=== PATIENT | male | born 1960 | race African-American/Black ===

== ENCOUNTER 2017-02-26 19:16 | Inpatient (IN) | payer MEDICARE, MEDICAID ==
[~2017-02-26] VITALS: Ht 200.7 cm; Wt 93.9 kg
[~2017-02-26 19:16] MED LIST: ASPI-991 PO; Nitroglycerin SL; SIMV20TA2 PO
--- NOTE | 2017-02-26 19:28 | NUR ---
DARCIRA 37 FROM [facility]. PT C/O NON RADIATING SHARP CHEST PAIN, ON AND OFF X 2 DAYS. PER EMS ADMIN 162 ASA PO. PT AOX3 RR EVEN AND UNLABORED. NO SOB NOTED. NAD NOTED. NO NVD AT THIS TIME. PT NOT DIAPHORETIC. PT GOWNED AND PLACED ON MONITOR WAITING FOR MD HINES.
--- NOTE | 2017-02-26 19:43 | NUR ---
LAB AT BEDSIDE FOR BLOOD DRAW.
--- NOTE | 2017-02-26 19:56 | NUR ---
XRAY AT BEDSIDE.
[2017-02-26 19:58] LABS: BASOPHILS % (AUTO) 0.3 % (0.0-2.0); EOSINOPHILS # (AUTO) 0.1 /CMM (0.0-0.7); EOSINOPHILS % (AUTO) 2.5 % (0.0-6.0); HEMATOCRIT 43 % (39-51); HEMOGLOBIN 14.1 g/dL (13.5-17.5); LYMPHOCYTES # (AUTO) 2.2 /CMM (0.8-4.8); MEAN CORPUSCULAR HEMOGLOBIN 28 PG (26.0-33.0); MEAN CORPUSCULAR HGB CONC 33 g/dl (31.0-36.0); MEAN CORPUSCULAR VOLUME 86 fL (80-96); MONOCYTES # (AUTO) 0.2 /CMM (0.1-1.30); MONOCYTES % (AUTO) 4.9 % (2.0-12.0); NEUTROPHILS # (AUTO) 1.9 /CMM (1.8-8.9); NEUTROPHILS % (AUTO) 43.3 % (43.0-81.0); PLATELET COUNT (AUTO) 165 /CMM (150-450); RDW COEFFICIENT OF VARIATION 13.4 (11.5-15.0); RED BLOOD CELL COUNT(AUTO) 4.96 MIL/uL (4.5-6.0); WHITE BLOOD COUNT (AUTO) 4.4 K/uL (4.3-11.0)
[2017-02-26 20:06] LABS: CARBON DIOXIDE 29 mmol/L (21-32); CHLORIDE 104 mmol/L (98-107); CREATININE 0.9 mg/dL (0.6-1.3); GLUCOSE 100 mg/dL (74-106); SODIUM SERUM 138 mmol/L (136-145); UREA NITROGEN, BLOOD 22 mg/dL (7-18)
[2017-02-26 20:09] LABS: INR 0.97 (0.87-1.13); PROTHROMBIN TIME 10.1 SECS (9.5-12.7)
--- NOTE | 2017-02-26 20:12 | NUR ---
DR. CAVAZOS AT BEDSIDE FOR EVAL.
[2017-02-26 20:16] LABS: TROPONIN I < 0.017 ng/mL (0.00-0.056)
[2017-02-26] MEDS ORDERED: NITROGLYCERIN 0.4 MG/TAB BOTTLE ONE (20:30)
[2017-02-26] MEDS ORDERED: NITROGLYCERIN 0.4 MG/TAB BOTTLE SL ONE (20:30)
--- NOTE | 2017-02-26 20:40 | NUR ---
CALLED [employer] FLASH OVEN OPERATOR WAS PAGED.
--- NOTE | 2017-02-26 20:40 | NUR ---
2ND TAB NITRO SL GIVEN FOR PT CP 12/19.
--- NOTE | 2017-02-26 21:19 | NUR ---
REPORT GIVEN TO AMIRAH SALAZAR FOR TEJAS.
[2017-02-26 21:30] VITALS: BP 126/73
--- NOTE | 2017-02-26 21:34 | NUR ---
PT TRANSFERED PER ACLS PROTOCOL TO TELE BED 312
--- NOTE | 2017-02-26 21:35 | NUR ---
VICE PRESIDENT OF DEVELOPMENT NOTE RECEIVED PATIENT FROM ER FOR ADMISSION, PATIENT IS ALERT AND ORIENTEDX3, GETTING OXYGEN 2L/MIN VIA NC, COMPLAINS OF CHEST PAIN 4/10. IV ON LEFT HAND IS PATENT AND INTACT. TELE MONITOR A-PACING 60. AMBULATORY, DRY SKIN AND SOME SCABS NOTED ON BOTH EXTREMITIES, PICTURES TAKEN AND PUT THEM IN A CHART. SRX2, BED IN LOW POSITION, CALL LIGHT WITHIN REACH, WILL CONTINUE TO MONITOR PATIENT.
[2017-02-26] MEDS ORDERED: ONDANSETRON HCL/PF 4 MG/2 ML VIAL IVP PRN (23:00)
[2017-02-26] MEDS ORDERED: NITROGLYCERIN 0.4 MG/TAB BOTTLE SL PRN (23:00)
[2017-02-26] MEDS ORDERED: ACETAMINOPHEN 325 MG TABLET PO PRN (23:00)
[2017-02-26] MEDS ORDERED: MORPHINE SULFATE INJ 2 MG/ML DISP.SYRIN IV PRN ×2 (23:00)
[2017-02-26] MEDS ORDERED: DOCUSATE SODIUM 100 MG CAPSULE PO PRN (23:00)
[2017-02-27] VITALS: BP 109/72
[2017-02-27 06:55] LABS: INR 0.98 (0.87-1.13); PROTHROMBIN TIME 10.5 SECS (9.5-12.7)
[2017-02-27 06:56] VITALS: BP 121/69
[2017-02-27 06:56] LABS: BASOPHILS % (AUTO) 0.3 % (0.0-2.0); EOSINOPHILS # (AUTO) 0.1 /CMM (0.0-0.7); EOSINOPHILS % (AUTO) 2.6 % (0.0-6.0); HEMATOCRIT 42 % (39-51); LYMPHOCYTES # (AUTO) 1.8 /CMM (0.8-4.8); LYMPHOCYTES % (AUTO) 38.9 % (20.0-44.0); MEAN CORPUSCULAR HEMOGLOBIN 29 PG (26.0-33.0); MEAN CORPUSCULAR HGB CONC 33 g/dl (31.0-36.0); MEAN CORPUSCULAR VOLUME 87 fL (80-96); MONOCYTES # (AUTO) 0.3 /CMM (0.1-1.30); MONOCYTES % (AUTO) 6.7 % (2.0-12.0); NEUTROPHILS # (AUTO) 2.4 /CMM (1.8-8.9); NEUTROPHILS % (AUTO) 51.5 % (43.0-81.0); PLATELET COUNT (AUTO) 170 /CMM (150-450); RDW COEFFICIENT OF VARIATION 14.3 (11.5-15.0); RED BLOOD CELL COUNT(AUTO) 4.84 MIL/uL (4.5-6.0); WHITE BLOOD COUNT (AUTO) 4.6 K/uL (4.3-11.0)
--- NOTE | 2017-02-27 06:57 | NUR ---
PROCESS CONTROL SPECIALIST NOTE PATIENT IS RESTING IN BED COMFORTABLY, NO ACUTE DISTRESS NOTED SINCE ADMISSION. TELE MONITOR A PACING 60. WILL ENDORSE TO DAY SHIFT FOR TEJAS.
--- NOTE | 2017-02-27 07:10 | NUR ---
MS RN OPENING NOTES RECEIVED PT. FROM NIGHTSHIFT NURSE IN STABLE CONDITION. OT IS A/O X4. NO SOB OR SIGNS OF DISTRESS NOTED. PT IS ON 2L O2 VIA NC AND SATING WELL AT 99%. PT. DENIES ANY CHEST PAIN OR TIGHTNESS AT THIS TIME. PACEMAKER NOTED ON LEFT CHEST WALL. PT IS A-PACING ON THE TELE MONITOR WITH A HR OF 60. IV PRESENT IN THE RIGHT HAND 20G PATENT AND INTACT. BED IN LOW LOCKED POSITION, SIDE RAILS UP X2, CALL LIGHT WITHIN REACH. WILL CONTINUE TO MONITOR.
[2017-02-27 07:20] LABS: CREATININE 0.8 mg/dL (0.6-1.3); MAGNESIUM 1.7 mg/dL (1.8-2.4); PHOSPHORUS 4.1 mg/dL (2.5-4.9); POTASSIUM 4.5 mmol/L (3.5-5.1)
[2017-02-27 08:00] VITALS: BP 121/69
[2017-02-27] MEDS: ASPIRIN EC 81 MG TABLET.DR PO SCH (08:28)
[2017-02-27] MEDS: CARVEDILOL 6.25 MG TABLET PO SCH ×2 (08:29→21:00)
[2017-02-27 09:31] LABS: ALANINE AMINOTRANSFERASE 68 U/L (12-78); ALBUMIN 3.4 g/dL (3.4-5.0); ALKALINE PHOSPHATASE 48 U/L (46-116); ASPARTATE AMINOTRANSFERASE 60 U/L (15-37); BILIRUBIN,DIRECT 0.1 mg/dL (0.0-0.2); BILIRUBIN,TOTAL 0.4 mg/dL (0.2-1.0); TOTAL PROTEIN, SERUM 7.8 g/dL (6.4-8.2)
[2017-02-27 09:40] LABS: APPEARANCE,URINE CLEAR (CLEAR); BILIRUBIN,URINE NEGATIVE (NEGATIVE); BLOOD, URINE NEGATIVE Ery/uL (NEGATIVE); COLOR,URINE YELLOW (YELLOW); KETONES,URINE NEGATIVE (NEGATIVE); LEUKOCYTE ESTERASE ,URINE NEGATIVE (NEGATIVE); NITRITE, URINE NEGATIVE (NEGATIVE); PH,URINE 5.5 (5.0-8.0); PROTEIN,URINE NEGATIVE (NEGATIVE); UGLUCOSE NEGATIVE (NEGATIVE); UROBILINOGEN,URINE 0.2 EU/dL (0.2)
[2017-02-27 09:52] LABS: THYROID STIMULATING HORMONE 0.523 uIU/mL (0.358-3.74)
[2017-02-27 10:07] LABS: TROPONIN I < 0.017 ng/mL (0.00-0.056)
[2017-02-27] MEDS: Magnesium 1GM/D5W 100ML PREMIX 100 ML IV SCH ×2 (10:09→11:20)
[2017-02-27 12:00] VITALS: BP 144/97
[2017-02-27] MEDS ORDERED: BENZ0.5T3 PO (12:44)
[2017-02-27] MEDS ORDERED: SERT25TA PO (12:44)
[2017-02-27] MEDS ORDERED: RISP0.253 PO (12:44)
[2017-02-27] MEDS ORDERED: CARV3.122 PO (12:48)
[2017-02-27] MEDS ORDERED: LISI-607 PO (12:48)
[2017-02-27] MEDS ORDERED: PHEN100C4 PO ×2 (12:48)
[2017-02-27] MEDS ORDERED: METF500T4 PO (12:48)
--- NOTE | 2017-02-27 15:03 | NUR ---
head worker spoke to patient at bedside. Patient was oriented x4. Patient was calm and cooperative. Per patient, he came from [facility] and was there voluntarily to detox. Per patient, he has a hx of alcohol abuse and cocaine use and currently was using and than ended up at [facility]. Per patient, he was in a prison in [place] prior to being at [facility]. Per patient, his sister Jeri Jain ([phone]) is his utility person. Patient's brother Matt Vick ([phone]) is patient's other utility person. Per patient, he is and has not spoken to his in five years. Per patient, he does not have any children. head worker informed patient that [facility] has a psych unit as well if he would like to go voluntarily. Patient stated, " no I do not want to go in the psych unit here. I want to go back to [facility] the social services director there was helping me look for a prison." head worker stated that she would follow-up. Addendum: 02/27/17 at 1520 by LEONEL MACARIO Patient requested to speak to the social services director. head worker spoke to patient at bedside, who stated that he had spoken to Mariela and wanted to go back to the prison. head worker asked patient who Mariela was and patient began to become irritable and verbally aggressive. Patient stated, "I told you I want to go back to the prison and they are taking me back, and your trying to put me in a psych unit." head worker explained to patient that she would follow-up with case management as they are in charge of placement." Addendum: 02/27/17 at 1601 by LEONEL BARNES SW Patient denied visual auditory hallucinations and stated that he has auditory hallucinations but could not state what the voices were telling him. Patient denied suicidal and homicidal ideations.
[2017-02-27] MEDS ORDERED: NITROGLYCERIN 0.4 MG/TAB BOTTLE SL PRN (16:00)
[2017-02-27] MEDS ORDERED: CARVEDILOL 3.125 MG TABLET PO SCH (17:00)
[2017-02-27] MEDS: METFORMIN 500 MG TABLET PO SCH (17:44)
[2017-02-27] MEDS: LORAZEPAM 1 MG TABLET PO PRN ×2 (17:53→23:59)
[2017-02-27] MEDS ORDERED: PHENYTOIN EXTENDED RELEASE 100 MG CAPSULE PO SCH (18:00)
--- NOTE | 2017-02-27 19:04 | NUR ---
CHANNELER CLOSING NOTES PT. REMAINS IN STABLE CONDITION. NO REPORTS OF CHEST OAIN DURING SHIFT. ALL NEEDS WERE ANTICIPATED AND MED. NO ACUTE CHANGES IN CONDITION DURING SHIFT. ALL SAFETY MEASURES IN PLACE. WILL ENDORSE TO NIGHTSHIFT NURSE FOR TEJAS
--- NOTE | 2017-02-27 19:25 | NUR ---
RN OPEN NOTES RECEIVED PATIENT AWAKE IN BED. A/O X4. NO SIGNS OF DISTRESS OR DISCOMFORT. BREATHING EVEN AND UNLABORED. PER AM SHIFT PATIENT JUST ACCIDENTALLY PULLED OUT IV ACCESS. ON TELE MONITORING WITH A-PACING 62 NOTED. DENIES ANY PAIN AT THIS TIME. BED IN LOW LOCKED POSITION WITH SIDE RAILS X2. CALL LIGHT WITHIN REACH. WILL CONTINUE TO MONITOR. Addendum: 02/27/17 at 2333 by CURTIS IYER RN RECEIVED PATIENT ON 2LPM O2 VIA NC.
[2017-02-27 20:00] VITALS: BP 102/74
[2017-02-27] MEDS ORDERED: SIMVASTATIN 20 MG TABLET PO SCH (22:00)
--- NOTE | 2017-02-27 23:59 | NUR ---
RN NOTES ADMINISTERED ATIVAN .5MG ORDERED PER PATIENT REQUEST FOR ANXIETY. WILL CONTINUE TO MONITOR.
[2017-02-28] VITALS: BP 103/66
[2017-02-28 04:00] VITALS: BP 111/79
[2017-02-28 06:00] VITALS: BP 118/78
[2017-02-28 06:43] LABS: BASOPHILS % (AUTO) 0.3 % (0.0-2.0); EOSINOPHILS # (AUTO) 0.1 /CMM (0.0-0.7); EOSINOPHILS % (AUTO) 2.4 % (0.0-6.0); HEMATOCRIT 44 % (39-51); HEMOGLOBIN 14.4 g/dL (13.5-17.5); LYMPHOCYTES # (AUTO) 1.9 /CMM (0.8-4.8); LYMPHOCYTES % (AUTO) 47.6 % (20.0-44.0); MEAN CORPUSCULAR HEMOGLOBIN 29 PG (26.0-33.0); MEAN CORPUSCULAR HGB CONC 33 g/dl (31.0-36.0); MEAN CORPUSCULAR VOLUME 87 fL (80-96); MONOCYTES # (AUTO) 0.2 /CMM (0.1-1.30); MONOCYTES % (AUTO) 6.2 % (2.0-12.0); NEUTROPHILS # (AUTO) 1.7 /CMM (1.8-8.9); NEUTROPHILS % (AUTO) 43.5 % (43.0-81.0); PLATELET COUNT (AUTO) 157 /CMM (150-450); RDW COEFFICIENT OF VARIATION 14.1 (11.5-15.0); RED BLOOD CELL COUNT(AUTO) 5.03 MIL/uL (4.5-6.0)
[2017-02-28 07:04] LABS: TROPONIN I < 0.017 ng/mL (0.00-0.056)
--- NOTE | 2017-02-28 07:15 | NUR ---
RN CLOSING NOTES PATIENT RESTING IN BED, EASILY AROUSABLE TO NAME. A/O X4. NO SIGNS OF DISTRESS OR DISCOMFORT. BREATHING EVEN AND UNLABORED. IV ACCESS IN RAC, PATENT AND INTACT, NO SIGNS OF REDNESS OR INFILTRATION. ON TELE MONITORING WITH A-PACING 62 NOTED. DENIES ANY PAIN AT THIS TIME. ALL NEEDS MET. NO SIGNIFICANT CHANGES THROUGH THE NIGHT. BED IN LOW LOCKED POSITION WITH SIDE RAILS X2. CALL LIGHT WITHIN REACH. ENDORSED TO AM SHIFT FOR TEJAS.
--- NOTE | 2017-02-28 07:45 | NUR ---
UI PROGRAMMER NOTES RECEIVED PATIENT IN BED, NO APPARENT DISTRESS NOTED, DENIES PAIN, DENIES SOB.PATIENT NPO, AWAITING STRESS TEST. PATIENT NOTED WITH LEFT CHEST WALL PACEMAKER, ON TELE MONITORING A PACING 60. IV LINE ON RAC PATENT. ALL NEEDS MET, KEPT CLEAN AND DRY, CALL LIGHT WITHIN REACH.
[2017-02-28] MEDS ORDERED: REGADENOSON 0.4 MG/5 ML DISP.SYRIN IVP ONE (08:00)
[2017-02-28 08:09] LABS: ALANINE AMINOTRANSFERASE 61 U/L (12-78); ALBUMIN 3.5 g/dL (3.4-5.0); ALKALINE PHOSPHATASE 47 U/L (46-116); ASPARTATE AMINOTRANSFERASE 46 U/L (15-37); BILIRUBIN,TOTAL 0.4 mg/dL (0.2-1.0); CALCIUM, SERUM 8.8 mg/dL (8.5-10.1); CARBON DIOXIDE 26 mmol/L (21-32); CHLORIDE 101 mmol/L (98-107); CREATININE 0.7 mg/dL (0.6-1.3); GLUCOSE 97 mg/dL (74-106); MAGNESIUM 1.8 mg/dL (1.8-2.4); PHOSPHORUS 4.1 mg/dL (2.5-4.9); POTASSIUM 4.5 mmol/L (3.5-5.1); SODIUM SERUM 136 mmol/L (136-145); UREA NITROGEN, BLOOD 16 mg/dL (7-18)
[2017-02-28] MEDS ORDERED: LISINOPRIL (5MG) 5 MG TABLET PO SCH (09:00)
[2017-02-28] MEDS ORDERED: PHENYTOIN EXTENDED RELEASE 100 MG CAPSULE PO SCH (09:00)
[2017-02-28] MEDS: METFORMIN 500 MG TABLET PO SCH (10:12)
[2017-02-28] MEDS: ASPIRIN EC 81 MG TABLET.DR PO SCH (10:12)
[2017-02-28] MEDS: CARVEDILOL 6.25 MG TABLET PO SCH (10:13)
[2017-02-28 10:14] VITALS: BP 118/78
--- NOTE | 2017-02-28 16:00 | NUR ---
SAFETY SCIENTIST CLOSING NOTES PATIENT LEFT IN STABLE CONDITION, AMBULATING VIA PRIVATE CAR. NO APPARENT DISTRESS NOTED, DENIES PAIN DENIES SOB. ALL DUE MEDS GIVEN, ALL NEEDS MET, KEPT CLEAN AND DRY. DISCHARGE INSTRUCTIONS REVIEWED WITH PATIENT, WITH EDUCATION PROVIDED. PATIENT STATED UNDERSTANDING. PATIENT INSTRUCTED TO F.U WITH PCP IN 1/2 WEEKS. PATIENT REFUSED TO TAKE PICTURES. EXIT CARE UTILIZED TO PROVIDE EDUCATIONAL MATERIAL. ALL BELONGINGS ACCOUNTED FOR, BELONGINGS LIST SIGNED. IV LINE DISCONTINUED.
== END 2017-02-28 15:30 | disposition home or self-care (01) | DRG 392 ==
LOC: ER 19:18 → TELE 20:54
PROVIDERS: ADMIT Internal Medicine; ATTEND Internal Medicine
DX: K21.9 Gastro-esophageal reflux disease without esophagitis (principal); I42.9 Cardiomyopathy, unspecified; I10 Essential (primary) hypertension; E11.9 Type 2 diabetes mellitus without complications; F17.210 Nicotine dependence, cigarettes, uncomplicated; F20.9 Schizophrenia, unspecified; F41.9 Anxiety disorder, unspecified; G40.909 Epilepsy, unspecified, not intractable, without status epilepticus; I25.10 Atherosclerotic heart disease of native coronary artery without angina pectoris; Z95.0 Presence of cardiac pacemaker; F32.9 Major depressive disorder, single episode, unspecified; I25.2 Old myocardial infarction; Z98.61 Coronary angioplasty status
CPT/HCPCS: 36415; 71010-TC; 71020-TC; 80048-TC; 80053-TC; 80061-TC; 80076-TC; 80305; 81000-TC; 82150-TC; 83690-TC; 83735-TC; 84100-TC; 84439-TC; 84443-TC; 84484-TC; 85025-TC; 85610-TC; 85730-TC; 87081-TC; 93307-TC; A4606; A9502; J2785; J3475; J7050; Z7610

== ENCOUNTER 2017-04-28 13:08 | Inpatient (IN) | payer MEDICARE, MEDICAID ==
[~2017-04-28] VITALS: Ht 200.7 cm; Wt 89.4 kg
[~2017-04-28 13:08] MED LIST changes: +BENZ0.5T3 PO; +CARV3.122 PO; +LISI-607 PO; +METF500T4 PO; +PHEN100C4 PO; +RISP0.253 PO; +SERT25TA PO
--- NOTE | 2017-04-28 14:50 | NUR ---
[id number]: PT IS 56 YEARS OLD MALE ADMITTED ON 5150 FOR DTS. ACCORDING TO HOLD PT CALLED 911. [employer] RESPONDED AND TOOK PT INTO CUSTODY. MEMBER SERVICE REPRESENTATIVE'S SMART UNIT RESPONDED TO [employer] TO EVALUATE. PT STATED THAT HE IS HEARING VOICES, TELLING HIM TO CUT HIMSELF. PT HAS AFIB, CARDIAC PACEMAKER, HTN, SUBSTANCE ABUSE, DM. WOUND CONSULT ORDERER. SKIN ASSESSMENT COMPLETED. BELONGINGS STORED AND DOCUMENTED. MRSA DONE. NOTIFIED [facility] WHERE PT RESIDES. NOTIFIED DR. TURNER AND SELF PROPELLED MINING MACHINE OPERATOR CHLOE. PROVIDE WITH PT'S RIGHT BOOKLET. DISCUSS MEAL TIME AND FRESH AIR BREAKS SCHEDULE. ALL PAPERWORK AND COMPUTER DOCUMENTATION COMPLETED. WILL ENDORSE TO INCOMING NURSE TO DOUBLE CHECK ALL PAPERWORK AND COMPUTER DOCUMENTATION TO BE COMPLETED.
[2017-04-28] MEDS ORDERED: PANT40TA2 PO (15:09)
[2017-04-28] MEDS ORDERED: NICO1PAT28 TD (15:09)
[2017-04-28] MEDS ORDERED: ASPI-991 PO (15:09)
[2017-04-28] MEDS ORDERED: GABA-534 PO (15:09)
[2017-04-28] MEDS ORDERED: LISI-607 PO (15:10)
[2017-04-28] MEDS ORDERED: CARV3.122 PO (15:10)
[2017-04-28 15:44] VITALS: BP 119/70
[2017-04-28 16:00] VITALS: BP 119/70
[2017-04-28 19:40] VITALS: BP 101/69
--- NOTE | 2017-04-29 04:45 | NUR ---
GPS RN NOTES: PATIENT COMPLAINING OF CHEST PAIN SITTER REPORTED. VITAL SIGNS CHECKED BP 94/62, HR-61 O2 SAT OF 96%. PATIENT DESCRIBED THE PAIN LEVEL 8 OUT OF 10. NO FACIAL GRIMACE NOTES, NO NECK PAIN, NO PAIN RADIATING TO THE ARMS. DR. MOSES PAGED. 0515- DR. MOSES CALLED BACK GPS UNIT, WITH ORDERS TO DO TROPONIN LEVELS X2, 4 HOURS APART, EKG TWICE, 4 HOURS APART. 2D ECHO, AND CARDIOLOGY CONSULT WITH DR. VITAL FOR FURTHER EVALUATION OF PATIENT'S PACEMAKER. 0520- PATIENT INFORMED OF THE DOCTOR'S ORDERS REGARDING HIS COMPLAINS. PATIENT VERBALIZED UNDERSTANDING. THIS TIME, THE PATIENT REPORTED THAT HISS CHEST PAIN HAS SUBSIDED TO 6 OUT OF 10. 05:35, TROPONIN LEVEL FIRST COLLECTION DONE, EKG-1ST TAKING DONE. WILL ENDORSE TO ONCOMING NURSE. WILL CONTINUE TO MONITOR PATIENT.
--- NOTE | 2017-04-29 05:25 | NUR ---
GPS RN NOTE, PATIENT HAS A COMPLAINT OF LOWER EXTREMITY PAIN AT 3 OUT 10 ON THE PAIN SCALE AND IS REQUESTING GABAPENTIN AT THIS TIME. PATIENT VITAL SIGNS ARE STABLE. GAVE GABAPENTIN 300MG Q8HR PO SCHEDULED ORDERED. WILL REASSESS PAIN AND I WILL CONTINUE TO MONITOR THIS PATIENT.
[2017-04-29 08:00] VITALS: BP 106/67
--- NOTE | 2017-04-29 09:15 | NUR ---
RN NOTE:Patient refused TROPONIN BLOOD DRAW ,EKG AND 2DECHO .SEEN BY .ENCOURAGE PATIENT TO COMPLY STILL REFUSED ,WILL CONTINUE TO MONITOR .NO CHEST PAIN AT THIS TIME .
[2017-04-29 09:29] LABS: BILIRUBIN,TOTAL 0.4 mg/dL (0.2-1.0); CALCIUM, SERUM 8.4 mg/dL (8.5-10.1); CREATININE 0.7 mg/dL (0.6-1.3); POTASSIUM 4.2 mmol/L (3.5-5.1)
[2017-04-29 09:36] LABS: CHOLESTEROL 148 mg/dL (<200); HDL CHOLESTEROL 59 mg/dL (40-60); LDL 72 mg/dL (0-99); TRIGLYCERIDES 144 mg/dL (30-150)
[2017-04-29 16:00] VITALS: BP 130/91
[2017-04-29 20:14] VITALS: BP 145/85
[2017-04-30 07:17] LABS: BASOPHILS % (AUTO) 0.3 % (0.0-2.0); EOSINOPHILS # (AUTO) 0.2 /CMM (0.0-0.7); EOSINOPHILS % (AUTO) 5.9 % (0.0-6.0); HEMATOCRIT 42 % (39-51); HEMOGLOBIN 13.7 g/dL (13.5-17.5); LYMPHOCYTES # (AUTO) 1.7 /CMM (0.8-4.8); MEAN CORPUSCULAR HEMOGLOBIN 29 PG (26.0-33.0); MEAN CORPUSCULAR HGB CONC 33 g/dl (31.0-36.0); MEAN CORPUSCULAR VOLUME 89 fL (80-96); MONOCYTES # (AUTO) 0.2 /CMM (0.1-1.30); MONOCYTES % (AUTO) 5.8 % (2.0-12.0); NEUTROPHILS # (AUTO) 1.4 /CMM (1.8-8.9); PLATELET COUNT (AUTO) 149 /CMM (150-450); RED BLOOD CELL COUNT(AUTO) 4.74 MIL/uL (4.5-6.0); WHITE BLOOD COUNT (AUTO) 3.6 K/uL (4.3-11.0)
--- NOTE | 2017-04-30 07:55 | NUR ---
Initial Discharge Plan: Patient resides at a sober living located at [address] [place], [place] [id number]; [phone]. He stated that he would like to be placed into a [facility] (he would like to go to [facility] in [place]) and would then like to return to his sober living facility. SW to contact the patient's sober disaster recovery manager Johnathon Roblero ([phone]) to notify him of the plan and will also follow up with the patient's brother (Matt Vick- [phone]). SW will help form a safe and proper discharge. Addendum: 04/30/17 at 0841 by PRAVEEN MACARIO Patient is a smoker and needs smoking cessation resources. He also has substance abuse (reports taking PCP last week) and will be given resources prior to discharge.
[2017-04-30 08:00] VITALS: BP 129/76
[2017-04-30 08:01] LABS: CALCIUM, SERUM 8.8 mg/dL (8.5-10.1); CREATININE 0.8 mg/dL (0.6-1.3); MAGNESIUM 1.9 mg/dL (1.8-2.4); PHOSPHORUS 3.6 mg/dL (2.5-4.9); POTASSIUM 4.4 mmol/L (3.5-5.1)
--- NOTE | 2017-04-30 10:59 | NUR ---
GPS RN NOTES/ PATIENT A/O X2/3, DELUSIONAL, PARANOID, ANXIOUS, IRRITABLE, ADMINISTERED ATIVAN 1 MG PO PRN PER PATIENT REQUEST, V/S STABLE BP -129/76, P-67, CONTINUED MONITORING.
--- NOTE | 2017-04-30 14:53 | NUR ---
fabric lay out worker faxed initial review packet to [facility] (phone: [phone]/ ) [address] [place] [address]. fabric lay out worker will follow-up.
[2017-04-30 16:12] VITALS: BP 107/63
[2017-04-30 20:21] VITALS: BP 99/62
--- NOTE | 2017-05-01 08:03 | NUR ---
WOUND CARE CONSULT WOUND RN ATTEMPTED TO DO ASSESSMENT FOR PATIENT AND PATIENT GOT UP FROM THE DINING ROOM AND STATED "IM OK" "DONT NEED ANYTHING" PATIENT REFUSED FOR WOUND RN TO PERFORM SKIN ASSESSMENT. NURSING STAFF AWARE.
[2017-05-01 08:05] VITALS: BP 112/73
--- NOTE | 2017-05-01 08:14 | NUR ---
GPS RN NOTES/ ADMINISTERED ATIVAN 1 MG PO PRN FOR PARANOIA, AGITATION, IRRITABLE, UNPREDICTABLE, SUSPICIOUSNESS. V/S TAKEN BP-112/73, P-74, CONTINUED MONITORING.
--- NOTE | 2017-05-01 11:29 | NUR ---
Group Note S: Pt stated, " I am happy with my placement...I will go to the facility and then sober living." Pt also stated, "I want to get clean, off drugs and have a clean life" O: Pt appeared to be engaged. Pt appeared to be in pleasant mood. Pt exhibited cooperative interaction style. A: Pt seems to have more awareness regarding his substance use issues. Pt appears to have made progress and seems to be stabilized. P: SW will form a safe and proper discharge for pt. SW will consult with pt's psychiatrist. SW will provide referrals for substance abuse treatment centers.
--- NOTE | 2017-05-01 13:14 | NUR ---
Per Darshana, at the facility, they cannot accept the patient at [facility] (phone: [phone]/ ) [address] [place] [address]. Per darshana, he has been to the facility twice and has chosen to leave twice due to his substance abuse. Per darshana, she warned pt. that if he chose to leave again the facility would not be able to take him back.
--- NOTE | 2017-05-01 13:19 | NUR ---
tankroom worker spoke to Bhupinder from [facility] facility ([phone]) [address] [place] [address]. [place] [address]. Per Bhupinder patient can return to the sober living upon discharge.
--- NOTE | 2017-05-01 15:52 | NUR ---
Yusuf faxed initial review packet to [facility] ([phone]) [address] [address] [place] [address]. Per Diana from the facility, patient has been accepted to the facility. housekeeping worker will follow-up.
[2017-05-01 16:09] VITALS: BP 104/67
[2017-05-01 17:15] VITALS: BP 130/86
--- NOTE | 2017-05-01 17:15 | NUR ---
GPS RN NOTES/ PATIENT WAS C/O CHEST PAIN, EKG DONE NORMAL SINUS RHYTHM, V/S TAKEN BP 130/86, P-65, 02-96 ROOM AIR, BS-88 MG/DL, CALLED AND NOTIFIED CONVEYOR TENDER CONCRETE [employer] MIGUEL MCELROY, AND GET ORDER STAT TROPONIN, ORDER TAKEN, AND CARRIED OUT.
--- NOTE | 2017-05-01 18:05 | NUR ---
GPS RN NOTES/ ADMINISTERED ATIVAN 1 MG PO PRN PER PATIENT REQUEST FOR ANXIETY, PARANOIA, V/S TAKEN BP 130/86, P-65, CONTINUED MONITORING.
--- NOTE | 2017-05-01 19:30 | NUR ---
GPS RN NOTE, RECEIVED PATIENT AWAKE AND IN BED, NO S/S OR COMPLAINTS OF PAIN AT THIS TIME. PATIENT IS DISPLAYING NO S/S OF APPARENT DISTRESS AT THIS TIME. PATIENT BREATHING IS UNLABORED WITH EQUAL RISE AND FALL OF THE CHEST. PATIENT IS ALERT AND ORIENTED X 2 ON ROOM AIR WITH A SPO2 98%. PATIENT HAS A ONE TO SITTER FOR SI. PATIENT COMPLIANT MEDICATION, DISORGANIZED, WITHDRAWN, DEPRESSED, ISOLATIVE, DISORGANIZE, COOPERATIVE, AND NEEDS REORIENTATION. PATIENT DENIES SUICIDE AND HOMICIDAL IDEATIONS AT THIS TIME. PATIENT ASSISTED WITH TURNING AND REPOSITIONING Q2HR AND PRN FOR COMFORT AND CIRCULATION. PATIENT HAS NO NEEDS AT THIS TIME. PATIENT EDUCATED ON THE USE OF THE CALL ARIAS. PATIENT BED SIDE RAILS UP X2 FOR SAFETY, BED IS LOCKED AND LOW WILL CONTINUE TO MONITOR AND MAINTAIN SAFETY.
[2017-05-01 20:04] VITALS: BP 116/64
--- NOTE | 2017-05-01 22:09 | NUR ---
GPS RN NOTE, PERFORMED ACCU CHECK ON PATIENT WITH A BLOOD SUGAR RESULT OF 116. GAVE 0 UNITS OF REGULAR INSULIN PER SLIDING SCALE. WILL CONTINUE TO MONITOR THIS PATIENT.
--- NOTE | 2017-05-02 00:32 | NUR ---
GPS RN NOTE, PATIENT HAS A COMPLAINT OF HEART BURN AND WOULD LIKE MAALOX AT THIS TIME. PATIENT VITAL SIGNS ARE STABLE. GAVE MAALOX 30 ML PO Q6HR PRN ORDERED. WILL CONTINUE TO MONITOR THIS PATIENT.
[2017-05-02 08:00] VITALS: BP 127/65
[2017-05-02 08:50] VITALS: BP 127/65
--- NOTE | 2017-05-02 13:55 | NUR ---
DR. TURNER GAVE AN ORDER TO D/C HOLD AND D/C TO SOBER LIVING. PT. WITHOUT DISTRESS, DENIES SUICIDAL AND HOMICIDAL. TO FOLLOW UP WITH PSYCH AND MEDICAL DOCTORS.
--- NOTE | 2017-05-02 15:30 | NUR ---
Discharge Note: Patient will be discharged to [facility] facility ([phone]) [address] [place] [address]. Per Bhupinder from the sober living facility, patient can return to the sober living upon discharge. Patient is agreeable with the discharge plan. Patient's mood and affect are calm and appropriate. Patient denies suicidal and homicidal ideations. Patient was also referred to the [facility] ([phone]) [address] [place] [address]. Patient was referred to [facility] ([phone]) [address] [facility] [address] with an intake appointment scheduled for 05/06/17 at 9:00am. For smoking cessation patient was referred to [facility] [id number] [place] [phone] 05/04/17 at 5:00pm. Facilitated info to IDT team who are in agreement with discharge arrangement. The multidisciplinary exitcare form was done, printed, signed, and given to the patient.
--- NOTE | 2017-05-02 15:39 | NUR ---
GPS RN NOTE: PATIENT DISCHARGE TO [facility]BER LIVING [address] [facility] [address],PATIENT IN STABLE CONDITION NO S/S DISTRESS NOTED PATIENT CALM COOPERATIVE DENIES SUICIDAL AND HOMICIDAL IDEATIONS , VSS STABLE . DR YUE SCHMITT N.PHamilton RIVERA NOTIFIED T.O. ORDER TO CONTINUE MEDICATION DC PRN WITH HIS GIOVANA NUMBER PATIENT EXPLAIN MEDICATION MGMT , AND VERBALIZED UNDERSTANDING. EXIT CARE DONE PRINTED SIGN AND GIVEN TO PATIENT , BELONGINGS AND VALUABLES RETURNED TO PATIENT , PT REFUSED PICTURES BUT LET ME DO HIS WOUND CHANGE PER ORDER.
== END 2017-05-02 15:45 | disposition home or self-care (01) | DRG 876 ==
LOC: GPS 14:42
PROVIDERS: ADMIT Psychiatry & Neurology Psychosomatic Medicine; ATTEND Nurse Practitioner Acute Care
PROC: 0JBN0ZZ Excision of Right Lower Leg Subcutaneous Tissue and Fascia, Open Approach (ICD-10-PCS; principal; 2017-05-01)
DX: F25.9 Schizoaffective disorder, unspecified (principal); I42.9 Cardiomyopathy, unspecified; R45.851 Suicidal ideations; L97.819 Non-pressure chronic ulcer of other part of right lower leg with unspecified severity; I10 Essential (primary) hypertension; E78.5 Hyperlipidemia, unspecified; I25.10 Atherosclerotic heart disease of native coronary artery without angina pectoris; F17.210 Nicotine dependence, cigarettes, uncomplicated; L60.3 Nail dystrophy; Z95.0 Presence of cardiac pacemaker; E11.622 Type 2 diabetes mellitus with other skin ulcer; G62.9 Polyneuropathy, unspecified; F31.9 Bipolar disorder, unspecified; W57.XXXA Bitten or stung by nonvenomous insect and other nonvenomous arthropods, initial encounter; Y93.9 Activity, unspecified; Y92.9 Unspecified place or not applicable
CPT/HCPCS: 36415; 80048-TC; 80053-TC; 80061-TC; 80185-TC; 82746; 82962-TC; 83735-TC; 84100-TC; 84425; 84484-TC; 85025-TC; 87081-TC; J1815